=== PATIENT | female | born 1990 | race Caucasian/White ===

== ENCOUNTER 2016-04-21 11:56 | Inpatient (IN) ==
[~2016-04-21 11:56] MED LIST: Famotidine 20 MG/2 ML VIAL IVP PRN; Metoclopramide 10 MG/2 ML VIAL IVP PRN; Naloxone 0.4 MG/ML INJ IVP PRN
[2016-04-21] MEDS ORDERED: Ampicillin 2 GM in 0.9 % Sodium Chloride Mini Bag 100 ML IVPB ONE (11:59)
[2016-04-21 12:14] LABS: Basophils # 0.1 K/mcL (0.0-0.2); Basophils % 0.3 %; Eosinophils # 0.1 K/mcL (0.0-0.6); Eosinophils % 0.6 %; Hematocrit 32.3 % (35.3-44.9); Immature Granulocytes % 0.9 % (0-4); Lymphocytes # 2.5 K/mcL (0.6-4.6); Lymphocytes % 15.1 %; Mean Corpuscular HGB Conc 34.1 g/dL (31.6-35.5); Mean Corpuscular Hemoglobin 31.8 pg (28.0-33.3); Mean Corpuscular Volume 93.4 fL (83.0-100.0); Mean Platelet Volume 10.7 fL (9.4-12.4); Monocytes # 0.8 K/mcL (0.0-1.3); Monocytes % 4.8 %; Neutrophils # 13.1 K/mcL (1.6-8.9); Platelet Count 233 K/mcL (140-400); Red Blood Count 3.46 M/mcL (3.82-4.97); Red Cell Distribution Width 12.5 % (11.5-14.5); Segmented Neutrophils % 78.3 %
[2016-04-21] MEDS: Ringers Solution, Lactated 1,000 ML IVC SCH ×2 (12:36→19:05)
[2016-04-21] MEDS ORDERED: *HR* Nalbuphine 20 MG/ML AMPUL IVP PRN (13:44)
[2016-04-21] MEDS ORDERED: *HR* Nalbuphine 20 MG/ML AMPUL ONE (13:54)
--- NOTE | 2016-04-21 14:17 | Anesthesia Evaluation PreOp ---
Date of Encounter: 04/21/16 Time of Encounter: 14:15 - Past History Planned Operation: john Cardiac History: Denies any Significant Hx Pulmonary History: Smoker (1/2 pack per day) OFFBEARER History: Denies Any Significant HX Other Medical History: Denies Any Significant HX Anesthesia History: No Prior Anesthetic Complications, Past Anesthesia : Yes (39weeks, ) Alcohol Use: none Drug use: none Medications and Allergies Ferrous Sulfate 04/21/16 [History] Multi Tablet 04/21/16 [History] Allergies No Known Allergies Allergy (Verified 04/21/16 11:26) - Meds/Allergy Pre-op Review Medications Reviewed: Yes Allergies Reviewed: Yes Beta Blockers on Current Med List: No Anesthesia Results - Labs 04/21/16 12:01 Anesthesia Exam O2 Sat Height 1.57 m Height 1.57 m Weight 98.3 kg Weight 98.3 kg Height: 62 Weight: 98 - HEENT Pupil (Motor): Pupils equal Mallampati: II Teeth: Normal (#9 chipped) Oral Opening: Greater than 3 - OFFBEARER LOC: Oriented OFFBEARER Motor: Normal RUE, Normal LUE, Normal RLE, Normal LLE, Normal Face OFFBEARER Sensory: Normal: RUE, LUE, RLE, LLE, Face - Cardiac Rhythm: Regular Murmur: None JVD: No Carotid Bruit: No - Pulmonary Breath Sounds: bilateral Clear Respiratory Effort: Symmetrical Anesthesia Assess/Plan ASA Score: 2 Modified Tello Scale for Level of Consciousness: Cooperative, oriented, and tranquil Anesthetic Plan: Regional Autologous Blood: No Monitoring Plan: Standard Monitors
[2016-04-21] MEDS ORDERED: *HR* FentaNYL (PF) 100 MCG/2 ML VIAL ONE (14:41)
[2016-04-21] MEDS ORDERED: Bupivacaine-MPF 0.25% 10 ML VIAL ONE (14:41)
[2016-04-21] MEDS ORDERED: Epidural Premix (fent/bupiv) 110 ML EP ONE ×2 (14:42→21:38)
[2016-04-21] MEDS ORDERED: Bupivacaine-MPF 0.25% 10 ML VIAL EP ONE (15:08)
[2016-04-21] MEDS ORDERED: Ondansetron 4 MG/2 ML VIAL IVP PRN (15:08)
[2016-04-21] MEDS ORDERED: EPHEDrine 50 MG/ML VIAL IVP PRN (15:08)
[2016-04-21] MEDS ORDERED: *HR* FentaNYL (PF) 100 MCG/2 ML VIAL EP ONE (15:08)
--- NOTE | 2016-04-21 15:12 | Anesthesia Procedures ---
Date of Encounter: 04/21/16 Time of Encounter: 15:10 Procedures: Anesthesia - Epidural/Spinal Patient ID/Chart reviewed: Yes Patient examined: Yes OB Eval: Gestational age: 39 OB Eval: : 1 OB Eval: Hx Para: 0 OB Eval: Dilated at (cm): 5 OB Eval: Contractions: Stressed pattern Consent Obtained: Yes Supplemental Oxygen: None/Room Air Site Prep: Aseptic Technique, 0.5% Chlorhexidine/Alcohol Patient position: upright Local Anesthetic: Lidocaine 1% Amount of Local Anesthetic used: 3 Touhy Needle Gauge: 18 Touhy Needle Depth (cm): 7 Catheter Depth at Skin (cm): 14 Test Dose (1.5% Lido + Epi): Volume given (mls): 3 Test Dose Result: Negative Loading Dose: 0.25% Marcaine (mls): 5 Loading Dose: Fentanyl (mcg): 100 Loading Dose: Other: 3ml nss Loading Dose Administered: Thru Touhy Needle Infusion Med: 0.125% Bupivacaine w/ 2 mcg/ml Fentanyl Infusion Rate (mls/hr): [address]: Tegaderm Interspace Used: L4-L5 Loss of Resistance (DEBRA): Yes Blood: No CSF: No Paresthesia: No Procedure: strict asepsis, good DEBRA, no change in FHR Vitals + FHT's: bp 103/76 107/74 102/72
[2016-04-21] MEDS ORDERED: Epidural Premix (fent/bupiv) 110 ML EP SCH (15:15)
[2016-04-21] MEDS: Ampicillin 1,000 MG in 0.9 % Sodium Chloride Mini Bag 100 ML IVPB SCH ×2 (16:25→22:12)
[2016-04-21] MEDS ORDERED: Oxytocin 20 units/ LR 1000 mL 20 UNIT/1,000 ML BAG IVC SCH (17:17)
[2016-04-21] MEDS ORDERED: Oxytocin 20 units/ LR 1000 mL 20 UNIT/1,000 ML BAG IVC ONE (17:27)
--- NOTE | 2016-04-21 18:02 | OB Labor Progress Note ---
Date of Encounter: 04/21/16 Time of Encounter: 18:00 Labor Progress Note - Subjective Subjective: Pt comfortable - Cervix Cervix: 6-7/100/-1 - Heart Tones Heart Tones: RNST - Gonvick Gonvick: AROM thin MSF (forebag) - Plan Plan: Expect
--- NOTE | 2016-04-22 01:40 | OB/GYN Procedure Note ---
Delivery - Delivery Date: 04/22/16 Provider: Stanley Olivo Intrapartum events: none Delivery induction: oxytocin Delivery monitor: external FHT, external uterine Anesthesia: epidural Estimated Blood Loss: 400 - Infant (s) Infant A Infant Delivery Date: 04/22/16 Infant Delivery Time: 00:28 Presentation: vertex Position: YRN Route of delivery: Gender: Male Viability: Viable Pounds: 8 Ounces: 7 at 1 minute: 9 at 5 mins: 9 Shoulder Dystocia: not encountered Specimens collected: cord blood Placenta: spontaneous Cord: 3 umbilical vessels - Repair Laceration Description: Periurethral, Perineal - 1st Degree - Complications Delivery complications: uterine atony (Responded to uterine massage and 400 mcg cytotec) - Disposition Mom disposition: stable in LDR disposition: stable in LDR - Comments Comments: Pt is s/p of liveborn male 8lb 7oz with apgars 9 at 1 min and 9 at 5 min. MSF was noted and had vigourous cry at delivery. RT was present for delivery. 1st degree lac and rt periurethral tear repaired with 3 - 0 Vicryl. EBL 400 cc, CYtotec 400 mcg was given along with uterine massage. Placenta was delivered intact.
[2016-04-22] MEDS ORDERED: Measles/Mumps/Rubella Vacc 0.5 ML VIAL SQ PRN (01:50)
[2016-04-22] MEDS ORDERED: Oxytocin 20 units/ LR 1000 mL 20 UNIT/1,000 ML BAG IVC ONE (01:50)
[2016-04-22] MEDS ORDERED: Rho Immune Globulin 1,500 UNIT SYRINGE IM PRN (01:50)
[2016-04-22] MEDS ORDERED: Oxytocin 20 units/ LR 1000 mL 20 UNIT/1,000 ML BAG IV SCH (01:50)
[2016-04-22] MEDS ORDERED: Acetaminophen 325 MG TABLET PO PRN (01:50)
--- NOTE | 2016-04-22 01:50 | OB/GYN History & Physical ---
Date of Encounter: 04/22/16 Time of Encounter: 01:48 Assessment and Plan (1) 38 weeks gestation of Current visit: Yes Status: Acute (2) Rupture of membranes Current visit: Yes Status: Acute Pt with 3 day h/o possible ROM, testing on admit indicates rupture. No evidence of infection. Will begin Ampicllin and augment if needed. History of Present Illness Chief complaint: possible lof x 3 days HPI: Ms. Friedman is a 26 year old female G1 female presents with possible LOF x 3 days and irregular but progressive uc's. She denies fever or abd pain. + GFM.. Preg has otherwise been uncomplicated. Past Med Surg Social Fam HX - Past Medical History Medical history: no medical history Psychiatric history: no psych history - Past Surgical History Surgical History: no surgical history - Social History Smoking Status: Current every day smoker Packs per day: 0.5 pack Smokeless Tobacco Status: No Alcohol use: none Drug use: none - Family History Mother Adopted: [place]: Renee Friedman Age: 46 Living Status: Still Living Hx Family Cardiac Disorders: No Hx Family Respiratory Disorders: No Hx Family Cancer: No Hx Family GI Disorders: No Hx Family Genitourinary Disorders: No Hx Family Endocrine Disorder: No Hx Family Musculoskeletal Disorders: No Hx Family Neuromuscular Disorders: No Hx Family Neurologic Disorders: No Hx Family HEENT Disorders: No Hx Family Autoimmune Disorders: No Hx Family Reproductive Disorders: No Hx Family Psychosocial Disorders: No Hx Family Medical Disorders: No Obstetrical History - Pregnancies : 1 Medications and Allergies Ferrous Sulfate 04/21/16 [History] Multi Tablet 04/21/16 [History] Allergies No Known Allergies Allergy (Verified 04/21/16 11:26) Exam - Constitutional Constitutional: well developed, no acute distress - HEENT HEENT: EOMI - Neck Neck exam: full ROM - Lungs Respiratory exam: CTAB - Cardiovascular Cardiovascular exam: RRR - Abdomen Abdomen: Present: gravid, non tender - Extremities Extremities exam: full ROM Deep Tendon Reflex Grade: 2+ Normal - Cervix Dilation: 2 Effacement: 80 Station: -2 (+ Nitraziine and clear liquid noted) Results Result Diagrams: 04/21/16 12:01 Abnormal lab results WBC 16.8 K/mcL (4.3-11.1) H 04/21/16 12:01 RBC 3.46 M/mcL (3.82-4.97) L 04/21/16 12:01 Hgb 11.0 g/dL (11.5-15.4) L 04/21/16 12:01 Hct 32.3 % (35.3-44.9) L 04/21/16 12:01 Neutrophils # 13.1 K/mcL (1.6-8.9) H 04/21/16 12:01 All other labs normal. - VTE Reasons for not Prescribing Prophylaxis: Treatment not Indicated - Low risk for VTE
[2016-04-22 04:58] LABS: Hematocrit 27.9 % (35.3-44.9); Hemoglobin 9.5 g/dL (11.5-15.4); Mean Corpuscular HGB Conc 34.1 g/dL (31.6-35.5); Mean Corpuscular Volume 93.9 fL (83.0-100.0); Mean Platelet Volume 11.1 fL (9.4-12.4); Neutrophils # 19.3 K/mcL (1.6-8.9); Platelet Count 227 K/mcL (140-400); Red Blood Count 2.97 M/mcL (3.82-4.97); Red Cell Distribution Width 12.5 % (11.5-14.5); Segmented Neutrophils % 84.3 %
[2016-04-22 04:59] LABS: Basophils # 0.1 K/mcL (0.0-0.2); Basophils % 0.2 %; Eosinophils # 0.1 K/mcL (0.0-0.6); Eosinophils % 0.2 %; Immature Granulocytes % 0.6 % (0-4); Lymphocytes # 2.1 K/mcL (0.6-4.6); Lymphocytes % 9.2 %; Monocytes # 1.3 K/mcL (0.0-1.3); Monocytes % 5.5 %
[2016-04-22] MEDS: Prenatal Vit/FA 1 EACH TABLET PO SCH (08:57)
[2016-04-22] MEDS: Ibuprofen 600 MG TABLET PO PRN ×2 (09:10→20:11)
[2016-04-23 07:34] VITALS: BP 123/80
[2016-04-23] MEDS: Prenatal Vit/FA 1 EACH TABLET PO SCH (07:35)
[2016-04-23] MEDS: Ibuprofen 600 MG TABLET PO PRN (07:36)
--- NOTE | 2016-04-23 08:34 | Discharge Summary ---
Date of Encounter: 04/23/16 Time of Encounter: 08:31 - Discharge Diagnosis (1) Vaginal delivery Priority: Primary Status: Acute Comments: continue routine care discharge home today follow up in 4-[address] Nettles - Discharge Medications Prescriptions: Ibuprofen [Motrin] 600 mg PO Q6HR PRN #60 tablet PRN Reason: Cramping Home Medications: Multi Tablet 04/21/16 [History] Ibuprofen [Motrin] 600 mg PO Q6HR PRN #60 tablet 04/23/16 [Rx] Allergies/Adverse Reactions: Allergies No Known Allergies Allergy (Verified 04/21/16 11:26) Data Procedures and tests throughout hospitalization: Laboratory Tests 04/21/16 04/22/16 12:01 03:37 WBC 16.8 H 22.9 H RBC 3.46 L 2.97 L Hgb 11.0 L 9.5 L D Hct 32.3 L 27.9 L MCV 93.4 93.9 MCH 31.8 32.0 MCHC 34.1 34.1 RDW 12.5 12.5 Plt Count 233 227 MPV 10.7 11.1 Immature Gran % 0.9 0.6 Seg Neutrophils % 78.3 84.3 Lymphocytes % 15.1 9.2 Monocytes % 4.8 5.5 Eosinophils % 0.6 0.2 Basophils % 0.3 0.2 Neutrophils # 13.1 H 19.3 H Lymphocytes # 2.5 2.1 Monocytes # 0.8 1.3 Eosinophils # 0.1 0.1 Basophils # 0.1 0.1 Date of admission: 04/21/16 11:56 Primary care physician: Mike Goddard CNP Consults: 04/22/16 01:50 Consult to Cutting And Printing Machine Operator [CONS] Routine Comment: Vaginal delivery, consult needed Discharging clinician: Lashay Cummings Anticipated date of discharge: 04/23/16 - Patient Status Disposition: Home, Self-Care Condition: Good Functional capacity at discharge: independent ambulation - Discharge Instructions Follow Up With: Abe Nettles DO [Partnered Physician] - (May 20, 2016 @ 10:50 am) - Diet and Activity Activity: increase activity as tolerated Diet: regular diet Hospital Course Reason for admission: active labor, rupture of membranes Delivery: Episiotomy: none Laceration: 1st degree Other procedures: none complications: uterine atony Discharge diagnosis: IUP at term delivered [place] baby: male (bottle feeding) Time Attestation: Total time spent providing and/or coordinating discharge services: Time Spent: Less than 30 minutes Exam - Constitutional Vitals: Temp Pulse Resp BP Pulse Ox 97.6 F 71 14 123/80 98 04/23/16 07:32 04/23/16 07:45 04/23/16 07:45 04/23/16 07:32 04/23/16 07:32 General appearance IM: A&O X 3, pleasant, answers questions appropriately - Respiratory Respiratory exam: Present: CTAB - Cardiovascular Cardiovascular exam IM: Present: RRR, +S1, +S2 - GI/Abdominal GI/Abdominal exam IM: normal bowel sounds - Uterine Tone: Firm Uterus Position: 2 Fingers Below Umbilicus, Midline - Extremities Exam Extremities exam IM: Present: normal capillary refill, normal inspection - Neurological Exam Neurological exam: oriented X3, reflexes normal
[2016-04-23] MEDS ORDERED: miSOPROStol 100 MCG TABLET PO ONE (11:23)
== END 2016-04-23 11:24 | disposition home or self-care (01) | DRG 560 ==
LOC: 1NENULAB → 1NENUOBS 04-22 03:04
PROVIDERS: ADMIT Obstetrics & Gynecology; ATTEND Obstetrics & Gynecology